=== PATIENT | female | born 1980 | race Caucasian/White ===

== ENCOUNTER 2018-07-20 15:25 | Emergency (ER) | payer SELFPAY ==
[~2018-07-20] VITALS: Ht 180.3 cm; Wt 72.6 kg
[2018-07-20] MEDS ORDERED: ONDANSETRON PF 4 MG/2 ML VIAL. IV ONE (16:00)
[2018-07-20] MEDS ORDERED: MORPHINE SULFATE 4 MG/ML VIAL. IV ONE (16:00)
[2018-07-20 16:13] LABS: BILIRUBIN,URINE NEGATIVE (NEG); CLARITY,URINE CLEAR; COLOR,URINE YELLOW; NITRITE,URINE POSITIVE (NEG); PH,URINE 7.5; PROTEIN,URINE NEGATIVE (NEG-TRACE); UROBILINOGEN,URINE 0.2 mg/dL (0.2 mg/dL)
[2018-07-20 16:24] LABS: BASO % 0 % (0-3); EOS # 0.2 x10^3/uL (0.0-0.7); EOS % 1 % (0-3); HEMATOCRIT 39.6 % (36.0-47.0); HEMOGLOBIN 13.3 g/dL (12.0-15.5); LYMPH # 1.2 x10^3/uL (1.0-4.8); LYMPH % 11 % (24-48); MEAN CORPUSCULAR HEMOGLOBIN 30 pg (25-35); MEAN CORPUSCULAR HGB CONC 34 g/dL (31-37); MEAN CORPUSCULAR VOLUME 89 fL (79-100); MONO # 1.3 x10^3/uL (0.0-1.1); MONO % 12 % (0-9); NEUT # 8.8 x10^3uL (1.8-7.7); NEUT % 76 % (31-73); PLATELET COUNT 205 x10^3/uL (140-400); RED BLOOD COUNT 4.43 x10^6/uL (3.50-5.40); WHITE BLOOD COUNT 11.5 x10^3/uL (4.0-11.0)
[2018-07-20 16:26] LABS: BACTERIA,URINE MODERATE /HPF (0-FEW); RBC,URINE 0 /HPF (0-2); WBC,URINE RARE /HPF (0-4)
[2018-07-20 16:27] LABS: SQUAMOUS EPITHELIAL CELL,UR MOD /LPF
[2018-07-20 16:37] LABS: CALCIUM 9.1 mg/dL (8.5-10.1); CREATININE 0.8 mg/dL (0.6-1.0); GFR 80.3; POTASSIUM 3.7 mmol/L (3.5-5.1)
[2018-07-20 16:41] LABS: ALBUMIN 3.7 g/dL (3.4-5.0); TOTAL BILIRUBIN 0.8 mg/dL (0.2-1.0); TOTAL PROTEIN 7.4 g/dL (6.4-8.2)
--- NOTE | 2018-07-20 17:42 | PHYS DOC ---
Past Medical History Past Medical History: Heart Disease, Seizure Additional Past Medical Histor: Minor N-STEMI's (VALERIA GRULLON MD) Past Surgical History: Appendectomy (VALERIA GRULLON MD) Additional Information: 1 pack lasts 4 days. Alcohol Use: Sober Drug Use: None (VALERIA GRULLON MD) Adult General Chief Complaint Chief Complaint: ABDOMINAL PAIN HPI HPI Patient is a 38 year old female presenting with lower abdominal pain left- sided 4 days worse today [place] she had sudden onset shortness of breath and tingling throughout her entire body all 4 extremities she felt like everything was very heavy she's felt she was having trouble breathing options saturation was 100% on room air paramedics that she was hyperventilating pain in the left lower quadrant sharp radiates to the back has a history of ovarian problems in the past. No fever no vomiting (VALERIA GRULLON MD) Review of Systems Review of Systems Constitutional: Denies fever or chills [] Eyes: Denies change in visual acuity, redness, or eye pain [] HENT: Denies nasal congestion or sore throat [] Respiratory: Denies cough or shortness of breath [] Cardiovascular: : Denies dysuria or hematuria [] Musculoskeletal: Denies back pain or joint pain [] Integument: Denies rash or skin lesions [] Neurologic: Denies headache, focal weakness or sensory changes [] Endocrine: Denies polyuria or polydipsia [] All other systems were reviewed and found to be within normal limits, except as documented in this note. (VALERIA GRULLON MD) Current Medications Current Medications Current Medications Medications (Trade) Dose Ordered Sig/Pino Start Time Stop Time Status Last Admin Dose Admin Info (CONTRAST GIVEN -- Rx MONITORING) 1 each PRN DAILY PRN 07/20/18 18:00 07/22/18 17:59 Iohexol (Omnipaque 300 Mg/ml) 75 ml 1X ONCE 07/20/18 18:00 07/20/18 18:01 DC 07/20/18 18:07 75 ML Ketorolac Tromethamine (Toradol 15mg Vial) 15 mg 1X ONCE 07/20/18 18:00 07/20/18 18:01 DC 07/20/18 18:44 15 MG Morphine Sulfate (Morphine Sulfate) 4 mg 1X ONCE 07/20/18 16:00 07/20/18 16:08 DC 07/20/18 17:12 4 MG Ondansetron HCl (Zofran) 4 mg 1X ONCE 07/20/18 16:00 07/20/18 16:08 DC 07/20/18 17:06 4 MG ([facility]) Allergies Allergies Allergies Coded Allergies Type Severity Reaction Last Updated Verified shellfish derived Allergy Unknown 07/20/18 Yes ([facility]) Physical Exam Physical Exam Constitutional: Well developed, well nourished, no acute distress, non-toxic appearance. [] HENT: Normocephalic, atraumatic, bilateral external ears normal, oropharynx moist, no oral exudates, nose normal. [] Eyes: PERRLA, EOMI, conjunctiva normal, no discharge. [] Neck: Normal range of motion, no tenderness, supple, no stridor. [] Cardiovascular:Heart rate regular rhythm, no murmur [] Lungs & Thorax: Bilateral breath sounds clear to auscultation [] Abdomen: Bowel sounds normal, soft, left lower quadrant tenderness, no masses, no pulsatile masses. [] Skin: Warm, dry, no erythema, no rash. [] Back: No tenderness, no CVA tenderness. [] Extremities: No tenderness, no cyanosis, no clubbing, ROM intact, no edema. [] Neurologic: Alert and oriented X 3, normal motor function, normal sensory function, no focal deficits noted. [] Psychologic: Affect normal, judgement normal, mood anxious (VALERIA GRULLON MD) Current Patient Data Vital Signs Vital Signs Date Time Temp Pulse Resp B/P (MAP) Pulse Ox O2 Delivery O2 Flow Rate FiO2 07/20/18 17:12 16 100 Room Air 07/20/18 15:42 98.4 78 114/72 (86) 98.4 ([facility]) Lab Values Laboratory Tests Test 07/20/18 15:35 07/20/18 15:57 07/20/18 16:13 Urine Collection Type Unknown Urine Color Yellow Urine Clarity Clear Urine pH 7.5 Urine Specific [place] <=1.005 Urine Protein Negative mg/dL (NEG-TRACE) Urine Glucose (UA) Negative mg/dL (NEG) Urine Ketones (Stick) Negative mg/dL (NEG) Urine Blood Negative (NEG) Urine Nitrite Positive (NEG) Urine Bilirubin Negative (NEG) Urine Urobilinogen Dipstick 0.2 mg/dL (0.2 mg/dL) Urine Leukocyte Esterase Negative (NEG) Urine RBC 0 /HPF (0-2) Urine WBC Rare /HPF (0-4) Urine Squamous Epithelial Cells Mod /LPF Urine Bacteria Moderate /HPF (0-FEW) POC Urine HCG, Qualitative Hcg negative (Negative) White Blood Count 11.5 x10^3/uL (4.0-11.0) H Red Blood Count 4.43 x10^6/uL (3.50-5.40) Hemoglobin 13.3 g/dL (12.0-15.5) Hematocrit 39.6 % (36.0-47.0) Mean Corpuscular Volume 89 fL (79-100) Mean Corpuscular Hemoglobin 30 pg (25-35) Mean Corpuscular Hemoglobin Concent 34 g/dL (31-37) Red Cell Distribution Width 13.0 % (11.5-14.5) Platelet Count 205 x10^3/uL (140-400) Neutrophils (%) (Auto) 76 % (31-73) H Lymphocytes (%) (Auto) 11 % (24-48) L Monocytes (%) (Auto) 12 % (0-9) H Eosinophils (%) (Auto) 1 % (0-3) Basophils (%) (Auto) 0 % (0-3) Neutrophils # (Auto) 8.8 x10^3uL (1.8-7.7) H Lymphocytes # (Auto) 1.2 x10^3/uL (1.0-4.8) Monocytes # (Auto) 1.3 x10^3/uL (0.0-1.1) H Eosinophils # (Auto) 0.2 x10^3/uL (0.0-0.7) Basophils # (Auto) 0.0 x10^3/uL (0.0-0.2) Sodium Level 137 mmol/L (136-145) Potassium Level 3.7 mmol/L (3.5-5.1) Chloride Level 102 mmol/L (98-107) Carbon Dioxide Level 25 mmol/L (21-32) Anion Gap 10 (6-14) Blood Urea Nitrogen 10 mg/dL (7-20) Creatinine 0.8 mg/dL (0.6-1.0) Estimated GFR (Cockcroft-Gault) 80.3 BUN/Creatinine Ratio 13 (6-20) Glucose Level 81 mg/dL (70-99) Calcium Level 9.1 mg/dL (8.5-10.1) Total Bilirubin 0.8 mg/dL (0.2-1.0) Aspartate Amino Transferase (AST) 13 U/L (15-37) L Alanine Aminotransferase (ALT) 16 U/L (14-59) Alkaline Phosphatase 43 U/L (46-116) L Total Protein 7.4 g/dL (6.4-8.2) Albumin 3.7 g/dL (3.4-5.0) Albumin/Globulin Ratio 1.0 (1.0-1.7) Laboratory Tests 07/20/18 16:13 Laboratory Tests 07/20/18 16:13 (JARETT ORDONEZ DO) EKG EKG Normal sinus rhythm rate of 86 no acute ischemic changes noted interpreted by me the time of the encounter[] (VALERIA GRULLON MD) Radiology/Procedures Radiology/Procedures [] (VALERIA GRULLON MD) Impressions: Chest x-ray interpreted by me was negative acute IMPRESSION: The left ovary is not visualized sonographically. No adnexal mass is seen. The right ovary is normal. Electronically signed by: Rahat Pittman MD (07/20/2018 5:41 PM) [facility] [place] DICTATED and SIGNED BY: KALEB PITTMAN (VALERIA GRULLON MD) Course & Med Decision Making Course & Med Decision Making Pertinent Labs and Imaging studies reviewed. (See chart for details) []Left lower quadrant pain history of ovarian cyst also a clinical syndrome suggestive of anxiety attack today. 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 Ordonez's note: Received patient at 1800. Agree with previous H&P Patient was transported to and from CT with any complications CT ABD PELV W/ IV CONTRST ONLY CT scan of the abdomen and pelvis with contrast 07/20/2018 CLINICAL HISTORY: Severe abdominal pain for the last 3 days. TECHNIQUE: After the intravenous administration of 75 cc of Omnipaque 300, contiguous, 5 mm axial sections were obtained through the abdomen and pelvis. One or more of the following individualized dose reduction techniques were utilized for this study: 1. Automated exposure control. 2. Adjustment of the mA and/or kV according to patient size. 3. Use of iterative reconstruction technique. FINDINGS: Images through the lung bases demonstrate minimal dependent subsegmental atelectasis bilaterally. The liver, spleen, pancreas, adrenal glands and kidneys are within normal limits. Atherosclerotic calcification of the abdominal aorta is seen. The abdominal aorta tapers normally. The gallbladder is well-distended. Scattered diverticula are seen involving the colon. Focal wall thickening is seen involving the ascending colon and proximal transverse colon in the region of the hepatic flexure. Increased density is seen within the adjacent fat. These findings are consistent with diverticulitis. No abnormal fluid collection is seen to suggest evidence of an abscess. Images through the pelvis demonstrate the urinary bladder distended with urine. Calcifications are seen within the pelvis consistent with phleboliths. A small to moderate amount of free fluid is seen in the pelvis. A 3.5 cm oval-shaped low-attenuation lesion is seen in the right adnexa which likely represents a right ovarian cyst. IMPRESSION: 1. Findings are seen consistent with diverticulitis involving the region of the hepatic flexure of the colon. 2. 3.5 cm probable right ovarian cyst. Small amount of free fluid is seen within the pelvis. We'll treat the patient for diverticulitis, there is no evidence of perforation or obstruction. (JARETT ORDONEZ DO) Dragon Disclaimer Dragon Disclaimer This electronic medical record was generated, in whole or in part, using a voice recognition dictation system. (VALERIA GRULLON MD) Departure Departure Impression: Primary Impression: Abdominal pain Additional Impression: Diverticulitis Disposition: 01 HOME, SELF-CARE Condition: IMPROVED Referrals: UNKNOWN PCP NAME (PCP) Patient Instructions: Diverticulitis Additional Instructions: Follow-up with your regular doctor in 2 days. If you do not have a regular doctor a list of local clinics will be provided for you. Avoid nuts, seeds, and popcorn in your diet. Drink plenty of fluids. Take the medication as prescribed. Return to the ER if worsening pain or any other concerns. Scripts Meloxicam (MELOXICAM) 7.5 Mg Tablet 7.5 MG PO DAILY, #20 TAB Prov: JARETT ORDONEZ DO 07/20/18 Hydrocodone/Apap 5-325 (NORCO 5-325 TABLET) 1 Each Tablet 1-2 EACH PO PRN Q6HRS PRN for SEVERE PAIN, #15 as needed for pain Prov: JARETT ORDONEZ DO 07/20/18 Metronidazole (FLAGYL) 500 Mg Tablet 500 MG PO QID for 10 Days, #40 TAB Prov: JARETT ORDONEZ DO 07/20/18 Ciprofloxacin Hcl (CIPRO) 500 Mg Tablet 1 TAB PO BID, #20 TAB Prov: JARETT ORDONEZ DO 07/20/18 Problem Qualifiers Primary Impression: Abdominal pain Abdominal location: unspecified location Qualified Codes: R10.9 - Unspecified abdominal pain VALERIA GRULLON MD Jul 20, 2018 17:41 JARETT ORDONEZ DO Jul 20, 2018 19:04
--- NOTE | 2018-07-20 17:44 | RAD ---
Transabdominal and transvaginal sonography of the pelvis Clinical indications: Left lower quadrant pain. Known cyst. Sudden increase in pain. Transabdominal sonography: The uterus is retroverted. The uterus is poorly visualized and therefore transvaginal sonography will be performed. The right ovary is visualized and measures 3.5 cm and 3.4 cm and 3.0 cm in size and contains follicular cysts. Color Doppler flow is evident within the right ovary. The left ovary is not visualized. Transvaginal sonography: The endometrial canal measures 8 mm in thickness. The longitudinal and AP and transverse dimensions of the uterus are 7.8 cm and 4.6 cm and 7.3 cm respectively. No uterine mass or fibroid is seen. The right ovary is normal containing normal follicular cysts. The left ovary is not visualized. No adnexal mass is seen. Small amount of physiologic free fluid is seen within the cul-de-sac. IMPRESSION: The left ovary is not visualized sonographically. No adnexal mass is seen. The right ovary is normal. Electronically signed by: Rahat Pittman MD (07/20/2018 5:41 PM) [facility]
[2018-07-20] MEDS ORDERED: KETOROLAC 15 MG/ML VIAL. IV ONE (18:00)
[2018-07-20] MEDS ORDERED: CONTRAST GIVEN. MC PRN (18:00)
[2018-07-20] MEDS ORDERED: IOHEXOL 300 MG/ML 100ML VIAL. IV ONE (18:00)
--- NOTE | 2018-07-20 18:03 | RAD ---
AP portable chest radiograph 07/20/2018 Clinical History: Chest pain since last night. An AP erect portable digital radiograph of the chest was obtained. No previous studies are available for comparison. The cardiac and mediastinal silhouettes are within normal limits in size and configuration. No acute pulmonary infiltrate is seen. No pleural effusion or pneumothorax is noted. Minimal S-shaped curvature of the thoracolumbar spine is seen. IMPRESSION: No acute abnormality is seen. Electronically signed by: Jose Rodney MD (07/20/2018 6:00 PM) [facility]
--- NOTE | 2018-07-20 18:54 | RAD ---
CT scan of the abdomen and pelvis with contrast 07/20/2018 CLINICAL HISTORY: Severe abdominal pain for the last 3 days. TECHNIQUE: After the intravenous administration of 75 cc of Omnipaque 300, contiguous, 5 mm axial sections were obtained through the abdomen and pelvis. One or more of the following individualized dose reduction techniques were utilized for this study: 1. Automated exposure control. 2. Adjustment of the mA and/or kV according to patient size. 3. Use of iterative reconstruction technique. FINDINGS: Images through the lung bases demonstrate minimal dependent subsegmental atelectasis bilaterally. The liver, spleen, pancreas, adrenal glands and kidneys are within normal limits. Atherosclerotic calcification of the abdominal aorta is seen. The abdominal aorta tapers normally. The gallbladder is well-distended. Scattered diverticula are seen involving the colon. Focal wall thickening is seen involving the ascending colon and proximal transverse colon in the region of the hepatic flexure. Increased density is seen within the adjacent fat. These findings are consistent with diverticulitis. No abnormal fluid collection is seen to suggest evidence of an abscess. Images through the pelvis demonstrate the urinary bladder distended with urine. Calcifications are seen within the pelvis consistent with phleboliths. A small to moderate amount of free fluid is seen in the pelvis. A 3.5 cm oval-shaped low-attenuation lesion is seen in the right adnexa which likely represents a right ovarian cyst. IMPRESSION: 1. Findings are seen consistent with diverticulitis involving the region of the hepatic flexure of the colon. 2. 3.5 cm probable right ovarian cyst. Small amount of free fluid is seen within the pelvis. Electronically signed by: Jose Rodney MD (07/20/2018 6:51 PM) [facility]
[2018-07-20] MEDS ORDERED: MELO7.5T29 PO (19:04)
[2018-07-20] MEDS ORDERED: HYDR-3164 PO (19:04)
[2018-07-20] MEDS ORDERED: METR500T PO (19:04)
[2018-07-20] MEDS ORDERED: CIPR500T94 PO (19:04)
[2018-07-20 19:44] VITALS: BP 106/62
--- NOTE | 2018-07-20 21:12 | EKG ---
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
== END 2018-07-20 20:00 | disposition home or self-care (01) ==
LOC: ER 15:25
DX: K57.32 Diverticulitis of large intestine without perforation or abscess without bleeding (principal); R06.02 Shortness of breath; R20.2 Paresthesia of skin; Z90.89 Acquired absence of other organs; R06.4 Hyperventilation; Z91.013 Allergy to seafood; J98.11 Atelectasis
CPT/HCPCS: 36415; 71045; 74177; 76830; 76856; 80053; 81001; 81025; 85025; 87086; 93005; 99284; J1885; J2270; J2405; Q9967

== ENCOUNTER 2019-05-23 19:47 | Emergency (ER) | payer SELFPAY ==
[~2019-05-23] VITALS: Ht 177.8 cm; Wt 72.6 kg
[~2019-05-23 19:47] MED LIST: CIPR500T94 PO; HYDR-3164 PO; MELO7.5T29 PO; METR500T PO
[2019-05-23] MEDS ORDERED: IV NORMAL SALINE 1000ML BAG 1,000 ML IV SCH (20:03)
[2019-05-23 20:12] LABS: BASO # 0.1 x10^3/uL (0.0-0.2); BASO % 1 % (0-3); EOS # 0.3 x10^3/uL (0.0-0.7); EOS % 4 % (0-3); HEMATOCRIT 38.7 % (36.0-47.0); LYMPH # 2.3 x10^3/uL (1.0-4.8); LYMPH % 31 % (24-48); MEAN CORPUSCULAR HEMOGLOBIN 30 pg (25-35); MEAN CORPUSCULAR HGB CONC 34 g/dL (31-37); MEAN CORPUSCULAR VOLUME 90 fL (79-100); MONO # 0.8 x10^3/uL (0.0-1.1); MONO % 11 % (0-9); NEUT # 3.9 x10^3/uL (1.8-7.7); NEUT % 53 % (31-73); PLATELET COUNT 220 x10^3/uL (140-400); RED BLOOD COUNT 4.28 x10^6/uL (3.50-5.40); RED CELL DISTRIBUTION WIDTH 12.1 % (11.5-14.5); WHITE BLOOD COUNT 7.4 x10^3/uL (4.0-11.0)
[2019-05-23] MEDS ORDERED: ASPIRIN CHEWABLE 81 MG TABLET. PO ONE (20:15)
[2019-05-23] MEDS ORDERED: KETOROLAC 30 MG/ML VIAL. IVP ONE (20:15)
[2019-05-23 20:26] LABS: CALCIUM 8.9 mg/dL (8.5-10.1); GFR 62.1; POTASSIUM 3.5 mmol/L (3.5-5.1)
[2019-05-23 20:32] LABS: ALBUMIN 3.9 g/dL (3.4-5.0); ALBUMIN/GLOBULIN RATIO 1.3 (1.0-1.7); MAGNESIUM 2.1 mg/dL (1.8-2.4); TOTAL BILIRUBIN 0.2 mg/dL (0.2-1.0); TOTAL PROTEIN 6.8 g/dL (6.4-8.2)
[2019-05-23 20:48] LABS: BILIRUBIN,URINE NEGATIVE (NEG); CLARITY,URINE CLOUDY; COLOR,URINE YELLOW; NITRITE,URINE POSITIVE (NEG); PH,URINE 7.5; PROTEIN,URINE NEGATIVE (NEG-TRACE)
[2019-05-23 21:01] LABS: SQUAMOUS EPITHELIAL CELL,UR MOD /LPF
[2019-05-23 21:02] LABS: BACTERIA,URINE MANY /HPF (0-FEW); RBC,URINE 0 /HPF (0-2)
[2019-05-23 21:24] VITALS: BP 120/74
[2019-05-23] MEDS ORDERED: DICL50TA4 PO (21:35)
--- NOTE | 2019-05-23 21:35 | PHYS DOC ---
Past Medical History Past Medical History: Heart Disease, Seizure Additional Past Medical Histor: Minor N-STEMI's Past Surgical History: Appendectomy Alcohol Use: Sober Drug Use: None Adult General Chief Complaint Chief Complaint: CHEST PAIN HPI HPI Patient is a 38-year-old female who presents with complaint of left-sided chest pain that started this morning. Patient states that pain is an 8-9 out of 10. She states that pain is worsened with breathing and with movements. She describes a sharp and stabbing in nature. Patient states that she does have a cardiac history, stating that she had a mild heart attack but was discharged home. She states that onset of pain was at rest. She does admit to an intermittent cough but is had no shortness of breath. She denies any lower extremity swelling or pain.[] Review of Systems Review of Systems Constitutional: Denies fever or chills [] Respiratory: Complains of cough without shortness of breath [] Cardiovascular: No additional information not addressed in HPI [] GI: Denies abdominal pain, nausea, vomiting or diarrhea [] Integument: Denies rash or skin lesions [] Neurologic: Denies headache, focal weakness or sensory changes [] All other systems were reviewed and found to be within normal limits, except as documented in this note. Current Medications Current Medications Current Medications Medications (Trade) Dose Ordered Sig/Pino Start Time Stop Time Status Last Admin Dose Admin Aspirin (Children'S Aspirin) 162 mg 1X ONCE 05/23/19 20:15 05/23/19 20:16 DC 05/23/19 20:24 162 MG Ketorolac Tromethamine (Toradol 30mg Vial) 30 mg 1X ONCE 05/23/19 20:15 05/23/19 20:16 DC 05/23/19 20:24 30 MG Sodium Chloride 1,000 ml @ 1,000 mls/hr Q1H 05/23/19 20:03 05/23/19 21:02 DC 05/23/19 20:24 1,000 MLS/HR Allergies Allergies Allergies Coded Allergies Type Severity Reaction Last Updated Verified shellfish derived Allergy Unknown 07/20/18 Yes Physical Exam Physical Exam Constitutional: Well developed, well nourished, no acute distress, non-toxic appearance. [] HENT: Normocephalic, atraumatic, bilateral external ears normal, oropharynx moist, no oral exudates, nose normal. [] Eyes: PERRLA, EOMI, conjunctiva normal, no discharge. [] Neck: Normal range of motion, no tenderness, supple, no stridor. [] Cardiovascular: Regular rate and rhythm. There is reproducible tenderness along the left sternal border.[] Lungs & Thorax: Bilateral breath sounds clear to auscultation [] Abdomen: Bowel sounds normal, soft, no tenderness. [] Skin: Warm, dry, no erythema, no rash. [] Extremities: No tenderness, no cyanosis, no clubbing, ROM intact, no edema. [] Neurologic: Alert and oriented X 3, no focal deficits noted. [] Current Patient Data Vital Signs Vital Signs Date Time Temp Pulse Resp B/P (MAP) Pulse Ox O2 Delivery O2 Flow Rate FiO2 05/23/19 19:58 98.3 76 18 130/74 (92) 100 Room Air 98.3 Lab Values Laboratory Tests Test 05/23/19 20:01 05/23/19 20:40 White Blood Count 7.4 x10^3/uL (4.0-11.0) Red Blood Count 4.28 x10^6/uL (3.50-5.40) Hemoglobin 13.0 g/dL (12.0-15.5) Hematocrit 38.7 % (36.0-47.0) Mean Corpuscular Volume 90 fL (79-100) Mean Corpuscular Hemoglobin 30 pg (25-35) Mean Corpuscular Hemoglobin Concent 34 g/dL (31-37) Red Cell Distribution Width 12.1 % (11.5-14.5) Platelet Count 220 x10^3/uL (140-400) Neutrophils (%) (Auto) 53 % (31-73) Lymphocytes (%) (Auto) 31 % (24-48) Monocytes (%) (Auto) 11 % (0-9) H Eosinophils (%) (Auto) 4 % (0-3) H Basophils (%) (Auto) 1 % (0-3) Neutrophils # (Auto) 3.9 x10^3/uL (1.8-7.7) Lymphocytes # (Auto) 2.3 x10^3/uL (1.0-4.8) Monocytes # (Auto) 0.8 x10^3/uL (0.0-1.1) Eosinophils # (Auto) 0.3 x10^3/uL (0.0-0.7) Basophils # (Auto) 0.1 x10^3/uL (0.0-0.2) D-Dimer ([place]) < 0.27 ug/mlFEU Sodium Level 140 mmol/L (136-145) Potassium Level 3.5 mmol/L (3.5-5.1) Chloride Level 104 mmol/L (98-107) Carbon Dioxide Level 25 mmol/L (21-32) Anion Gap 11 (6-14) Blood Urea Nitrogen 15 mg/dL (7-20) Creatinine 1.0 mg/dL (0.6-1.0) Estimated GFR (Cockcroft-Gault) 62.1 BUN/Creatinine Ratio 15 (6-20) Glucose Level 71 mg/dL (70-99) Calcium Level 8.9 mg/dL (8.5-10.1) Magnesium Level 2.1 mg/dL (1.8-2.4) Total Bilirubin 0.2 mg/dL (0.2-1.0) Aspartate Amino Transferase (AST) 11 U/L (15-37) L Alanine Aminotransferase (ALT) 11 U/L (14-59) L Alkaline Phosphatase 39 U/L (46-116) L Troponin I Quantitative < 0.017 ng/mL (0.000-0.055) GK-Ixl-P-Type Natriuretic Peptide 36 pg/mL (0-124) Total Protein 6.8 g/dL (6.4-8.2) Albumin 3.9 g/dL (3.4-5.0) Albumin/Globulin Ratio 1.3 (1.0-1.7) Lipase 90 U/L (73-393) Urine Collection Type Unknown Urine Color Yellow Urine Clarity Cloudy Urine pH 7.5 Urine Specific [place] 1.020 Urine Protein Negative mg/dL (NEG-TRACE) Urine Glucose (UA) Negative mg/dL (NEG) Urine Ketones (Stick) Negative mg/dL (NEG) Urine Blood Negative (NEG) Urine Nitrite Positive (NEG) Urine Bilirubin Negative (NEG) Urine Urobilinogen Dipstick 1.0 mg/dL (0.2 mg/dL) Urine Leukocyte Esterase Negative (NEG) Urine RBC 0 /HPF (0-2) Urine WBC 5-10 /HPF (0-4) Urine Squamous Epithelial Cells Mod /LPF Urine Bacteria Many /HPF (0-FEW) Urine Mucus Slight /LPF Laboratory Tests 05/23/19 20:01 Laboratory Tests 05/23/19 20:01 EKG EKG EKG demonstrates normal sinus rhythm with rate of 73.[] Radiology/Procedures Radiology/Procedures [] Impressions: Chest x-ray demonstrates no acute process. Course & Med Decision Making Course & Med Decision Making Pertinent Labs and Imaging studies reviewed. (See chart for details) [] Dragon Disclaimer Dragon Disclaimer This electronic medical record was generated, in whole or in part, using a voice recognition dictation system. Departure Departure Impression: Primary Impression: Chest wall pain Disposition: HOME, SELF-CARE Condition: STABLE Referrals: NO PCP (PCP) Patient Instructions: Chest Wall Pain, Costochondritis, Paresthesia Scripts Tramadol Hcl (TRAMADOL HCL) 50 Mg Tablet 50 MG PO Q6HRS PRN for PAIN, #12 TAB Prov: BARRY TRAVIS Jr. DO 05/23/19 Methylprednisolone (MEDROL) 4 Mg Tab.ds.pk 1 PKG PO UD, #1 PKG Prov: BARRY TRAVIS Jr. DO 05/23/19 Diclofenac Sodium (DICLOFENAC SODIUM) 50 Mg Tablet.dr 1 TAB PO BID PRN for PAIN, #20 TAB Prov: BARRY TRAVIS Jr. DO 05/23/19 BARRY TRAVIS Jr. DO May 23, 2019 21:35
[2019-05-23] MEDS ORDERED: METH4TAB2 PO (21:46)
[2019-05-23] MEDS ORDERED: TRAM50TA PO (21:46)
--- NOTE | 2019-05-24 03:59 | RAD ---
PORTABLE CHEST 1V INDICATION: Chest pain. COMPARISON STUDY: 07/20/2018. FINDINGS: Lungs: Normal lung volume. No pulmonary mass or consolidation. The tracheobronchial tree and hilar structures are normal. Pleura: No pleural effusion or pneumothorax. Heart and Mediastinum: The cardiomediastinal silhouette is normal. The great vessels of the thorax are normal. Bones and Soft Tissues: The bones and soft tissues are within normal limits. IMPRESSION: No acute cardiopulmonary process. Electronically signed by: Talat Lux MD (05/24/2019 3:56 AM) [facility]
--- NOTE | 2019-05-24 07:09 | EKG ---
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
== END 2019-05-23 21:50 | disposition home or self-care (01) ==
LOC: ER 19:47
DX: R07.89 Other chest pain (principal); R05 Cough; I51.9 Heart disease, unspecified; Z90.89 Acquired absence of other organs; Z98.890 Other specified postprocedural states; Z91.013 Allergy to seafood; Z79.899 Other long term (current) drug therapy
CPT/HCPCS: 36415; 71045; 80053; 81001; 83690; 83735; 83880; 84484; 85025; 85379; 87086; 93005; 96374; 99285; J1885; J7030